=== PATIENT | female | born 2000 | race Caucasian/White ===

== ENCOUNTER 2025-08-21 11:08 | Outpatient (AMB) | payer BC, SELFPAY ==
--- NOTE | 2025-08-21 11:11 | A.OFFPC_ITS ---
Vital Signs 08/21/25 11:17 Height 5 ft 1.25 in Weight 206 lb 8 oz BMI 38.7 BP 118/86 Blood Pressure Location Rt brachial Position Sitting Respiration 15 Pulse 90 Pulse Source Pulse Oximeter Temp 98 F Temp Source Temporal Artery Scan Pulse Oximetry (%) 98 Oxygen Delivery Method Room Air Intake Visit Reasons: [employer]PER[employer]-med refills Intake Note: America presents in the office today to establish care. Allergies No Known Allergies Allergy (Verified 08/21/25 11:13) Medication List - Last Reconciled 08/20/25 by Janee Ramos, [facility] escitalopram oxalate 10 mg PO DAILY norethindrone (contraceptive) 0.35 mg PO DAILY Tobacco use date assessed: 08/21/25 Dental Screening Dental Screen Date: 08/21/25 Did you have a dental visit in the last 12 months?: No Did you have a dental problem in the last 6 months where you did not have access to dental care?: No Was dental information given to patient?: Patient declined HPI HPI Comments History of Present Illness Details 25 y/o F with obesity, vape use, VERONICA, Hi dradenitis suprative, migraine w/ aura, eczema 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 in [place], no records, pending VERONICA on escitalopram; for about 1 year. Was on other meds before (sertraline). Reviewed PHQ/VERONICA feels more stressed r/t work. Denies SI.HI BMI > 38, exercise and food are a work in progress counseling referral requested. self harm in past Does not need refill; Pharmacy [facility] Migraines with aura - IUD placed 08/06/25, on POP OCP. Uses APAP and sleeping w/ dark room; applying pressure on the headache side. Occurs 4-5 times per month. Sx last 1 day on avg Can be rebound for 3ish days +n/v Was taking propranolol in the past Stopped taking Eczema: on dorsum of hands, eye lids, external ears, hairline Was using ketoconazole - now . didnt work great using dandruff shampoo on hands using using OTC topical, unsure what it is Patch under R axilla - started 10 days ago, used otc fungal w/o relief. Itchy; mildly painful; no one else w/ rash. Hard time waking; naps during the day; hard time falling asleep; tried trazadone; didnt help; only caused side effects. Melatonin w/o effect. This has been since s. + snoring has never had sleep study Denies fhx narcolepsy. Exam Awake alert NAD PERRLA, EOMI RRR LS CTAB R axilla erythematous patch, fungal appearing; anterior and posterior trunk w/ scars from HS lesions/cystic acne; dorsum of hands is eczema Mood and affect appropriate Plan: Start Mag Oxide and Riboflavin Flu and Tdap admin today Check home sleep study; consider in lab if negative to eval for narcolepsy like complaints. Check routine labs Derm referral for HS Antifungal cream Steroid cream RTO 8-12 weeks to fu on labs, sleep study and migraines. Sooner as needed. Total time spent caring for the patient today was 45 minutes. This includes time spent before the visit reviewing the chart, time spent during the visit, and time spent after the visit on documentation, reviewing laboratory results, diagnostic imaging, medications, performing a medically necessary evaluation, counseling on diagnoses, care coordination, ordering appropriate tests, ordering appropriate medications, review of tests performed by other providers, reporting test results with the patient, communication with other healthcare providers. [facility] Medical History (Updated 08/21/25 @ 14:23 by Janee Ramos [facility]) Anxiety Eczema Migraines Family History (Updated 08/21/25 @ 11:22 by Ramila Khalil [facility]) Father Substance abuse Alcoholism Hypertension Hyperlipemia Paternal Grandfather Hypertension Hyperlipemia Maternal Grandmother Cardiovascular disease Maternal Grandfather Cardiovascular disease Sister Thyroid disorder Other Cancer Social History (Updated 08/21/25 @ 11:17 by Ramila Khalil CMA) Housing: Apartment Alcohol intake: current Patient Tobacco Use Status: Never used Tobacco e-Cigarette/Vaping Use: Currently Using Second Hand Smoke Exposure: No service: No Current occupational status: employed and student Current occupation: [employer] Current occupational exposures/hazards: No Cognitive needs: No Hearing needs: No Vision needs: No Questionnaire PHQ-9 Over the last 2 weeks, how often have you been bothered by any of the following problems? 1. Little interest or pleasure in doing things: more than half the days 2. Feeling down, depressed, or hopeless: several days 3. Trouble falling or staying asleep, or sleeping too much: nearly every day 4. Feeling tired or having little energy: nearly every day 5. Poor appetite or overeating: nearly every day 6. Feeling bad about yourself - or that you are a failure or have let yourself or your family down: not at all 7. Trouble concentrating on things, such as reading the newspaper or watching television: several days 8. Moving or speaking so slowly that other people could have noticed. Or the opposite - being so fidgety or restless that you have been moving around a lot m ore than usual: not at all 9. Thoughts that you would be better off or of hurting yourself in some way: not at all Total score: 13 Depression Screening Interpretation: Positive Depression Screening Follow-up: Existing condition and In treatment Depression Screening Done: Yes 97422 - PHQ-9 Billing: Yes Source: Developed by Drs. Mendoza Gentile, Ratna Scott, Yared Moura and colleagues, with an educational cora from [employer]. Thrive Questionnaire Date Thrive assessed: 08/21/25 I am a: Patient What is your living situation today?: I have a steady place to live Within the past 12 months, did the food you bought not last and you didn't have the money to get more?: Never true Within the past 12 months, did you worry whether your food would run out before you got money to buy more?: Never true Do you have trouble paying for medicines?: No Do you have trouble getting transportation to medical appointments?: No Do you have trouble paying your heating and electricity bill?: No Do you have trouble taking care of your child, family member or friend?: No Do you have trouble with day-to-day activities such as bathing, preparing meals, shopping, managing finances, etc.?: No Are you currently unemployed and looking for a job?: No Are you interested in more education?: No Please select the resources that you would like help with: None Currently or been in a relationship where the following occur: No concerns reported THRIVE Score: 0 AUDIT C Alcohol Use Questionnaire (AUDIT-C) 1. How often do you have a drink containing alcohol?: 2-3 times a week 2. How many drinks containing alcohol do you have on a typical day when you are drinking?: 1 or 2 3. How often do you have six or more drinks on one occasion?: Less than monthly Total Score: 4 Score Reviewed/Action Taken: Yes VERONICA-7 AMB Questionnaire VERONICA-7 Date VERONICA - 7 assessed: 08/21/25 Feeling nervous, anxious, or on edge: 3 = Nearly every day Not being able to stop or control worryin = Nearly every day Worrying too much about different things: 3 = Nearly every day Trouble relaxin = Nearly every day Being so restless that it is hard to sit still: 1 = Several days Becoming easily annoyed or irritable: 3 = Nearly every day Feeling afraid as if something awful might happen: 2 = More than half the days Total VERONICA-7 score (0-4 normal; 5-9 mild; 10-14 moderate; 15-21 severe): 18 Source: Developed by Drs. Mendoza Gentile, Ratna Scott, Yared Moura and colleagues, with an educational cora from [employer]. VERONICA-7 Assessment Billing VERONICA-7 Assessment Tool: VERONICA-7 Assessment 75816 Physical exam (Primary Care) Vital Signs: Last Vital Signs Temp 98 F 08/21/25 11:17 Pulse 90 08/21/25 11:17 Resp 15 08/21/25 11:17 BP 118/86 08/21/25 11:17 Pulse Ox 98 08/21/25 11:17 Oxygen Delivery Method Room Air 08/21/25 11:17 BMI result Body Mass Index 38.7 BMI Assessment/Plan discussion: High BMI High, discussed plan: lifestyle Tobacco/Smoking Status: Tobacco use Status Tobacco use date assessed 08/21/25 08/21/25 11:16 Patient Tobacco Use Status Never used Tobacco 08/21/25 11:17 e-Cigarette/Vaping Use Currently Using 08/21/25 11:17 PHQ-9: PHQ-9 Score PHQ-9: Total score 13 08/21/25 11:20 Depression Screening Interpretation: Positive Depression Screening Follow-up: Existing condition and In treatment Thrive Assessment: Date of Thrive Assessment Date Thrive assessed 08/21/25 08/21/25 11:13 Currently or been in a relationship where the following occur: No concerns reported Coding Level of Care Code New Pt Level 4 (94556) Complex EM visit Add On G2211 Diagnoses Encounter to establish care with new provider Z76.89 Uses oral contraception Z30.41 Obesity (BMI 30-39.9) E66.9 Vaping nicotine dependence, tobacco product F17.290 Need for Tdap vaccination Z23 Influenza vaccination administered at current visit Z23 Flexural eczema L20.82 Eczema type: flexural Hidradenitis suppurativa L73.2 Hypersomnia G47.10 Laboratory exam ordered as part of routine general medical examination Z00.00 IUD (intrauterine device) in place Z97.5 Migraine with aura and without status migrainosus, not intractable G43.109 Status migrainosus presence: without status migrainosus Intractability: not intractable VERONICA (generalized anxiety disorder) F41.1 Additional Codes VERONICA-7 Assessment Billing - VERONICA-7 Assessment Tool: VERONICA-7 Assessment 81864 ([id number]) PHQ-9 - 06093 - PHQ-9 Billing: Yes ([id number]) Assessment & Plan Assessment & Plan (1) Encounter to establish care with new provider: Code(s): Z76.89 - Persons encountering health services in other specified circumstances (2) Uses oral contraception: Code(s): Z30.41 - Encounter for surveillance of contraceptive pills Category: Social Hx (3) Obesity (BMI 30-39.9): Code(s): E66.9 - Obesity, unspecified Category: Medical (4) Vaping nicotine dependence, tobacco product: Code(s): F17.290 - Nicotine dependence, other tobacco product, uncomplicated Category: Social Hx (5) Need for Tdap vaccination: Onset Date: ~08/21/25 Code(s): Z23 - Encounter for immunization Category: Medical (6) Influenza vaccination administered at current visit: Onset Date: ~08/21/25 Code(s): Z23 - Encounter for immunization Category: Medical (7) Eczema: Code(s): L30.9 - Dermatitis, unspecified Category: Medical Qualifiers: Eczema type: flexural Qualified Code(s): L20.82 - Flexural eczema (8) Hidradenitis suppurativa: Code(s): L73.2 - Hidradenitis suppurativa Category: Medical (9) Hypersomnia: Code(s): G47.10 - Hypersomnia, unspecified Category: Medical (10) Laboratory exam ordered as part of routine general medical examination: Code(s): Z00.00 - Encounter for general adult medical examination without abnormal findings Category: Medical (11) IUD (intrauterine device) in place: Onset Date: ~07/2025 Code(s): Z97.5 - Presence of (intrauterine) contraceptive device Category: Medical (12) Migraine with aura: Code(s): G43.109 - Migraine with aura, not intractable, without status migrainosus Category: Medical Qualifiers: Status migrainosus presence: without status migrainosus Intractability: not intractable Qualified Code(s): G43.109 - Migraine with aura, not intractable, without status migrainosus (13) VERONICA (generalized anxiety disorder): Code(s): F41.1 - Generalized anxiety disorder Category: Medical Plan . Orders: Orders RT home sleep study Today G47.10 - Hypersomnia, unspecified, R06.83 - Snoring Comprehensive Met. Panel Today Z00.00 - Encounter for general adult medical examination without abnormal findings Hemoglobin A1c Today Z00.00 - Encounter for general adult medical examination without abnormal findings Lipid Panel Today Z00.00 - Encounter for general adult medical examination without abnormal findings Microalbumin, Random (w Creat) Today Z00.00 - Encounter for general adult medical examination without abnormal findings TSH reflex Free T4 Today Z00.00 - Encounter for general adult medical examination without abnormal findings Vitamin B12 and Folate Today Z00.00 - Encounter for general adult medical examination without abnormal findings Vitamin D 25-OH Total Today Z00.00 - Encounter for general adult medical examination without abnormal findings Complete Blood Count no Diff Today Z00.00 - Encounter for general adult medical examination without abnormal findings IRON PROFILE Today Z00.00 - Encounter for general adult medical examination without abnormal findings Referrals Dermatology Referral L30.9 - Dermatitis, unspecified, L73.2 - Hidradenitis suppurativa Nurse Navigator Referral F41.1 - Generalized anxiety disorder Medications: New escitalopram oxalate 10 mg PO DAILY 90 tabs 2RF riboflavin (vitamin B2) 400 mg PO BEDTIME 90 tabs 2RF nystatin apply to affected area 1 appl topical TID 30 grams 0RF 30 days triamcinolone acetonide 0.1% 1 appl topical BID 15 grams 2RF magnesium oxide 400 mg PO BEDTIME 90 caps 2RF Patient Instructions: Walk-In Care (Urgent Care): We Make it Easy Walk-in for urgent medical issues such as: ? Seasonal Allergies ? Insect Bites ? Cough ? Diarrhea ? Acute Asthma Attacks ? Back, Knee or Joint Pain ? Ear Infection ? Fever without a Rash ? Headaches ? Nausea ? [place] Eye, Rash or Skin Irritation ? Sore Throat ? Sports Physicals ? Vomiting Most insurances are accepted. Patients do not need to be part of the [facility] to seek care at the walk-in clinic. Locations [facility] , [place] [address] ? [phone] [facility] Walk-In Care in [place] provides services to ages 18 and over. Open Wednesday-Wednesday: 7 a.m. to 5 p.m. and Wednesday: 9 a.m. to 3 p.m.* *Hours may vary due to staffing availability. To confirm Walk-In Care hours in [place], please call [phone]. [address] [place] [address] ? [phone] [facility] Walk-In Care in [place] provides services to ages 12 and over. Open Wednesday-Wednesday: 8 a.m. to 5 p.m. Hours may vary due to staffing availability. To confirm Walk-In Care hours in [place], please call [phone]. LABORATORY SERVICES: [facility] ? Primary Location [address] [place] [address] Wednesday through Wednesday 6:00 AM ? 5:00 PM Wednesday 7:00 AM ? 11:00 AM* [phone] The [facility] is centrally located near the front entrance of the [facility] for easy outpatient access. Convenient parking is provided for outpatients. *Hours may vary due to staffing availability. To confirm Laboratory hours for any location, please call [phone]. Offsite Location For your convenience, we offer offsite laboratory draw stations at the following locations: [address] [place] [address] ? [facility] [address], [address], [place] Wednesday through Wednesday 7:30 AM ? 1:00 PM* [phone] *Hours may vary due to staffing availability. To confirm Laboratory hours for any location, please call [phone]. [place] ? [address] Wednesday through Wednesday 6:00 AM ? 3:30 PM* Wednesday 6:30 AM ? 3 PM* [phone] *Hours may vary due to staffing availability. To confirm Laboratory hours for any location, please call [phone]. [address] [facility] Wednesday through Wednesday 7:30 AM ? 4:00 PM* [phone] *Hours may vary due to staffing availability. To confirm Laboratory hours for any location, please call [phone] [place] [address] Wednesday through 9:00 AM ? 4:00 PM* *Hours may vary due to staffing availability. To confirm Laboratory hours for any location, please call [phone]. Appointments are not necessary. Walk-ins are welcome. Like all the departments throughout the [facility], our Lab undergoes frequent reviews to ensure the quality and accuracy of test results, and our staff takes special pride in its status as a nationally accredited facility. Patient Portal: [facility] ONE PATIENT. ONE RECORD. BETTER CARE. [facility] has a fully integrated, cutting- edge mobile electronic health information system that has revolutionized the way we care for our patients and manage our organization. This system improves communication and coordination enabling us to provide safe, higher-quality care, and an overall positive experience for staff and patients. Our first priority, as always, is to deliver the highest quality care possible. The system is running in the background supporting that priority. This portal is for all [facility] services and practices. If you are experiencing any technical difficulties with enrolling or logging into the Patient Portal please complete the [facility] Patient Portal Technical Support Form. [facility] now offers a new secure on-line interactive tool for patients to review their health information ? ?Patient Portal. This interactive web portal will enable patients and their families to take an active role in their care by providing easy, secure access to their health information via the internet. The Patient Portal provides patients with instant access to their health information, including laboratory results, medications, allergies, demographic information, visit history, and more. In addition to managing their own care, parents and health care proxies with authorized consent will appreciate the ability to access the records of those individuals for whom they provide care. Please note: if you wish to gain access (Proxy) to another patient?s portal, you will be required to come to the Medical Records Department in person at [facility]. Both the patient giving proxy access and the proxy will need to provide photo identification and complete the appropriate authorization. The Patient Portal also allows track their appointments online. The [facility] Patient Portal also saves patients time by allowing them to submit updates to their demographic and contact information prior to their visits. Portal email notifications will also alert patients to any new activity on their portal, such as test results and new appointments. In order to initially enroll in the [facility] Patient Portal, you will need to enter some required information including the following: * your [facility] Medical Record number * your personal home email address * name * date of Please note: In order to enroll in the [facility] Patient Portal, we need to have your email address on file in your electronic medical record. ?The email address needs to be specific for one person (yourself) in order for your Portal enrollment to be successful. ?You can update your email address in person with our Registration staff when you are registering for a hospital visit. ?Otherwise, you will need to come to the Health Information Management (Medical Records) Department at [facility]. ?We are open from Wednesday ? Wednesday from 7:30 a.m. ? 4:30 p.m. ?You will be required to present a photo id. Once you have successfully enrolled in the Patient Portal, you will receive a one-time user id and password for the Portal, sent to your email address. ?This will allow you to log into the Patient Portal within 99 hrs and reset your own logon id and password, and define personal security questions. ?Once your permanent login and password have been set, you can log into the [facility] Patient Portal at any time via the blue button above or from the Portal Logon button on any page of the [facility] website. [facility] encourage all of our patients to enroll in Patient Portal as it presents a valuable opportunity for patients and their families to actively participate in their care and stay healthy Welcome to [facility]. ?We look forward to working with you.
[2025-08-21 11:17] VITALS: BP 118/86; PULSE 90; RESP 15; TEMP 36.6; O2SAT 98; BMI 38.7
== END 2025-08-21 12:01 | disposition home or self-care (01) ==
LOC: HO.HMCFM 11:09
PROVIDERS: PCP Nurse Practitioner Family; Visit Provider Nurse Practitioner Family
DX: G43.109 Migraine with aura, not intractable, without status migrainosus (principal); F17.290 Nicotine dependence, other tobacco product, uncomplicated; E66.9 Obesity, unspecified; Z68.38 Body mass index [BMI] 38.0-38.9, adult; L20.82 Flexural eczema; L73.2 Hidradenitis suppurativa; Z30.41 Encounter for surveillance of contraceptive pills; Z23 Encounter for immunization; G47.10 Hypersomnia, unspecified; Z97.5 Presence of (intrauterine) contraceptive device; F41.1 Generalized anxiety disorder

== ENCOUNTER → 2025-08-21 11:08 | Outpatient (BNVA) | payer BC, SELFPAY | PROVIDERS: PCP Nurse Practitioner Family; Visit Provider Nurse Practitioner Family | DX: L20.82 Flexural eczema (principal); E66.9 Obesity, unspecified; F17.290 Nicotine dependence, other tobacco product, uncomplicated; L73.2 Hidradenitis suppurativa; Z76.89 Persons encountering health services in other specified circumstances; Z68.38 Body mass index [BMI] 38.0-38.9, adult | CPT/HCPCS: 96127 ==

== ENCOUNTER → 2025-11-27 14:45 | Outpatient (REF) | payer BC, SELFPAY ==
--- OUTSIDE RECORDS SUMMARY | 2024-10-10 16:40 | XMS_ITS | Encounter Summary ---
Author Organization [facility] Address [address] [place] [phone] Phone Care Team Providers Care Tape Cutter Name Role Phone Jean Paul Pompa MD Primary Care Provi casper Encounter Details Date Type Department Care Team (Late st Contact Info) Description 10/10/2024 4:40 PM EST Hospital Encounter [facility] [address] [place] [id number] Ceci Black CNP [address] [place] [address] [email or web address] Social History Tobacco Use Types Packs/Day Years Used Date Smoking Tobacco: Never Assessed Education Answer Date Recorded Are you interested in more education? Not on dixie e 10/10/2024 Are you concerned about learning? Not on file 10/10/2024 No 10/10/2024 No 10/10/2024 Digital Access Answer Date Recorded No 10/10/2024 No 10/10/2024 Reliable internet access at home? Not on file 10/10/2024 Device with a working camera? Not on file Comments Unknown Sex and Gender Information Value Date Recorded Sex Assigned at Not on file Legal Sex Female 4:13 PM EST Gender Identity Not on file Sexual Orientation Not on file documented as of this encounter Plan of Treatment Not on file documented as of this encounter Procedures Procedure Name Priority Date/Time Associated Diagnosis Comments XR CHEST PA AND LATERAL 2 VIEWS Urgent/patient waiting 10/10/2024 4:44 PM EST Shortness of breath documented in this encounter Results * XR CHEST PA AND LATERAL 2 VIEWS (10/10/2024 4:44 PM EST) Anatomical Region Laterality Modality Chest Computed Radiogr aphy 10/10/2024 5:11 PM EST Impressions 10/10/2024 5:21 PM EST Asymmetric right basilar peribronchial cuffing and heterogeneous opacities may relate to early bronchopneumonia, versus asymmetric infectious/inflammatory airways disease/viral pneumonia. Narrative 10/10/2024 5:21 PM EST XR CHEST PA AND LATERAL 2 VIEWS Referring clinician's provided indication for this examination in [facility]: Cough; Dyspnea (Shortness of Breath); RLL crackles COMPARISON: None FINDINGS: Devices/Tubes/Lines: None. Lungs: Peribronchial cuffing, asymmetric in the right lung base. Mild heterogeneous perihilar and basilar right lower lobe opacities, which appear fairly streaky on the lateral view. Pleura: No pneumothorax or large pleural effusion. Heart/Mediastinum: Cardiac silhouette size is within normal limits. - Bones/Soft Tissues: No evident acute skeletal abnormality. Procedure Note Roel Elliott MD - 10/10/2024 XR CHEST PA AND LATERAL 2 VIEWS Referring clinician's provided indication for this examination in [facility]:Cough; Dyspnea (Shortness of Breath); RLL crackles COMPARISON: None FINDINGS: Devices/Tubes/Lines: None. Lungs: Peribronchial cuffing, asymmetric in the right lung base. Mildheterogeneous perihilar and basilar right lower lobe opacities, whichappear fairly streaky on the lateral view. Pleura: No pneumothorax or large pleural effusion. Heart/Mediastinum: Cardiac silhouette size is within normal limits. - Bones/Soft Tissues: No evident acute skeletal abnormality. IMPRESSION: Asymmetric right basilar peribronchial cuffing and heterogeneous opacitiesmay relate to early bronchopneumonia, versus asymmetricinfectious/inflammatory airways disease/viral pneumonia. Ceci Black [employer] IMG XR CHEST Final Resul t documented in this encounter Visit Diagnoses Not on filedocumented in this encounter Care Teams Tape Cutter Relationship Specialty Start Date End Date Jean Paul Pompa MD [address] [place] [address] PCP - General Pediatrics 10/10/24 documented as of this encounter Additional Source Comments The information contained in this document represents components of the legal health record. It is not the complete legal health record.[facility]
--- OUTSIDE RECORDS SUMMARY | 2025-11-27 18:24 | XMS_ITS | Data Portability ---
Author Organization PRANEETH Macdonald [facility], [address] Address [address] [place] [address] Assessment No assessment recorded. Plan of Treatment Reminders Order Date Submit Date Provider Last Modified By Organization Details Last Modified Time Details Appointments None recorded. Lab rapid strep group A, throat 2023 024 [email or web address] [facility], [address] [place] [address], [id number], 11:35:16 streptococc us group A, culture, throat 2023 024 DUTTON [facility], [address] [place] [address], [place], [address], 08:09:17 Referral None recorded. Procedures None recorded. Surgeries None recorded. Imaging None recorded. Medication Orders penicillin V potassium 500 mg tablet 2023 024 [email or web address] [facility] #[id number], [address] [place], [address], 08:23:51 Patient TargetsNo targets recorded. Patient Instructions Encounter Date Encounter Id Patient Instructions Last Modified By Organization Details Last Modified Time 08/21/2024 [id number] sore throat: car e instructions [email or web address] Not available 08/21/2024 11:35:14 Reason for Referral None Reported. Results Created Date Observation Date Name Description Value Unit Range Abnormal Flag Note LastModifiedBy Organization Detail LastModifiedTime 08/21/20 24 08/23/2024 BETA STREP GP A CULTU RE beta strep gp A culture COMMEN T abnormal Beta- hemol ytic colon ies, not group A Strep tococ cus isola jose alejandro. Refer ence Range : Negat dave Penic illin and ampic illin are drugs of choic e for treat ment of beta- hemol ytic strep tococ diomedes infec tions . Susce ptibi lity testi ng of penic illin s and other beta- lacta m agent s appro elaine by the FDA for treat ment of beta- hemol ytic strep tococ diomedes infec tions need not be perfo rmed routi nawaf becau se nonsu scept ible isola lyle are extre rufino rare in any beta- hemol ytic strep tococ cus and have not been repor jose alejandro for Strep tococ cus pyoge berta (grou p A). (CLSI ) Not Available [facility] ([facility]) [address] [facility], [place], [address], 08/23/2024 08:09:17 08/21/20 24 08/21/2024 rapid strep group A, throa t Unknown Analyte negati ve Not Available [address] [place], [address], 08/21/2024 11:21:14 08/21/2008/21/2024 rapid strep group A, throa t Unknown Analyte yes Not Available [address] [place], [address], 08/21/2024 11:21:14 Result Notes None recorded. Problems Name Problem SNOMED Code Status Onset Date Resolution Date Notes Provider Name and Address Organization Details Recorded Time Anxiety 85607454 Active Diane Roxana null, PA - [facility] 11:18:41 Depressive disorder 19239417 Active Diane Roxana null, PA - [facility] 11:18:47 Acute pharyngitis 237118719 Active 2023 Traci Lee, YENIFER [address], [place], [address] [place] PA - [facility] 11:28:44 Problem Notes None recorded. Procedures Surgical History Date Name Laterality Status Provider Name and Address Organization Details Recorded Time procedure on ear completed Diane Schmidt PA - [facility] 08/21/2024 11:19:41 extraction of wisdom tooth completed Diane Roxana PA - [facility] 08/21/2024 11:19:49 Imaging Results None recorded. Procedure Notes None recorded. Medical Equipment None Reported. Allergies No known drug allergies Medications Name Sig Start Date Stop Date Status Note LastModified by Organization Details LastModified Time neomycin-po lymyxin-hyd rocort 3.5 mg/mL-10,00 0 unit/mL-1 % ear solution PLACE 2 DROPS IN BOTH EARS 4 TIMES A DAY FOR 7 DAYS 08/21 completed Not Available Not Available Not Available acetaminoph en 325 mg tablet TAKE 2 TABLETS BY MOUTH EVERY 6 HOURS NEEDED FOR PAIN active Not Available Not Available No t Available ketoconazol e 2 % shampoo APPLY TO AFFECTED AREA OF DAMP SKIN, LATHER, LEAVE ON 5 MINUTES, AND RINSE THREE DAYS A WEEK 08/21 completed Not Available Not Available Not Available trazodone 50 mg tablet TAKE 1/2 TAB BY MOUTH ONCE A DAY FOR 90 DAYS 08/21 completed Not Available Not Available Not Available triamcinolo ne acetonide 0.5 % topical cream APPLY TO AFFECTED AREA TWICE A DAY FOR 14 DAYS 08/21 completed Not Available Not Available Not Available penicillin V potassium 500 mg tablet Take 1 tablet twice a day by oral route for 10 days, for throat infection . 2023 active Not Available Not Available Not Avai lable ibuprofen 600 mg tablet TAKE 1 TABLET BY MOUTH EVERY 6 HOURS NEEDED FOR MODERATE PAIN active Not Available Not Available No t Available norethindro ne (contracept dave) 0.35 mg tablet TAKE 1 TABLET BY MOUTH EVERY DAY active Not Available Not Available No t Available escitalopra m 10 mg tablet TAKE 1 TABLET BY MOUTH EVERY DAY 08/21 completed Not Available Not Available Not Available escitalopra m 5 mg tablet TAKE 1 TAB BY MOUTH ONCE A DAY FOR 21 DAYS AND THEN INCREASE TO 10MG DAILY active Not Available Not Available No t Available Vitals Date Recorded Body height Body mass index (BMI) Body weight Body temperature Respiratory rate Oxygen saturation Pain severity - 0-10 verbal numeric rating [Score] - Reported Heart rate Systolic And Diastolic Provider Name and Address Organization Details Last Updated DateTime 4 154.94 cm 39.7 kg/m2 99102.4 g 98.7 [degF] 18 /min 97 % 2 88 /min 119/86 mm[Hg] Diane Roxana PA - [facility] 4 11:21:09 Social History Question Answer Notes LastModified by [employer] Details LastModified Time Tobacco Smoking Status Never Smoker Diane Roxana null, PA - [facility] 08/21/2024 11:19:21 Have You Recently Traveled Abroad? No Information not available 08/21/2024 Sex: Unknown Functional Status Question Answer Note LastModified by [employer] Details LastModified Time Do you use any illicit or recreational drugs? No Information not available 08/21/2024 Do you or have you ever used any other forms of tobacco or nicotine? Yes Information not available 08/21/2024 What is your level of alcohol consumption? Occasional Information not available 08/21/2024 Are you currently employed? Yes Information not available 08/21/2024 Do you or have you ever used e-cigarettes or vape? Current user of electronic cigarettes Information not available 08/21/2024 Mental Status None recorded. Family History Nothing Reported. Medical History No medical history recorded. Gynecological History Statement/Question Response Date of LMP 07/25/2024 Is there any chance of ? No LMP Approximate Obstetrics History GPAL:G 0 P 0 0 0 0 Immunizations Vaccine Type Date Status Note Provider Nam e and Address Organization Details Recorded Time Influenza, MDCK, quadrivalent, PF 12/18/2020 completed Diane Roxana null, PA - [facility] 08/21/2024 11:17:21 COVID-19, mRNA, LNP-S, PF, 30 mcg/0.3 mL dose 02/11/2021 completed Diane Roxana null, PA - [facility] 08/21/2024 11:17:21 COVID-19, mRNA, LNP-S, PF, 30 mcg/0.3 mL dose 03/04/2021 completed Diane Roxana null, PA - [facility] 08/21/2024 11:17:21 COVID-19, mRNA, LNP-S, PF, 30 mcg/0.3 mL dose 11/24/2021 completed Diane Roxana yoav, PA - [facility] 08/21/2024 11:17:21 Past Encounters Encounter ID Performer Location Encounter Start Date Encounter Closed Date Diagnosis/Indication Diagnosis SNOMED-CT Code Diagnosis ICD10 Code Diagnosis IMO Codes Diagnosis Note [id number] [address] [place] [phone] 08/08/2019 15:45:34 08/08/2019 17:53:42 [id number] [facility] [phone] 05/10/2019 10:48:23 05/10/2019 11:45:42 [id number] 2099[facility] [address] 06/24/2019 09:31:38 06/24/2019 10:21:39 [id number] Traci Lee NP [facility] [address] [place] [phone] 08/21/2024 11:11:52 08/21/2024 11:38:57 Acute pharyngitis 392529372 J02.9 Based on your Presentati on, Exam, and Lab Testing you are being diagnosed with strep Pharyngiti s. Your Rapid Strep Test was neg I am going to prescribe you and antibiotic to cover this infection. Please be sure to complete the full course of this antibiotic to prevent antibiotic resistance . It is also important to complete this antibiotic because this infection is what causes Scarlet Fever/Rheu matic Heart Disease. Antibiotic s will typically take 4-5 days to start to work with symptom improvemen t. The following are my other recommenda tions to help with symptoms and is important for this diagnosis: 1. Do not share any food or drinks - strep is passed through direct saliva exchange (NOT IN THE AIR)2. Change your toothbrush in 3-4 days so that you don't re-infect yourself after you complete the antibiotic .3. Take Ibuprofen or Tylenol if you do not have any allergies to these medication s. If you take a blood thinner you should not take NSAIDS like Ibuprofen. These medication will help with the inflammati on in your respirator y tract which should help the cough. (I would alternate between Tylenol 650 mg and your Ibuprofen 600 mg every 4 hours)4. Do not take any Cold Medication s that have a Decongesta nt in it - this will dry out your throat and make the sore throat worse.5. Drinking Hot Tea with honey can help coat and soothe your throat.6. You would be considered contagious for the next 24-48 hours, or until fever resolves. I would be seen again if you develop any of the following symptoms.1 . Fever > 101.02. Stiff neck - where you can't turn your neck3. Trouble swallowing your saliva - drooling4. Swelling of a lymph node in your throat that is painful to touch5. Difficulty breathing6 . Severe Headache Thank you for using [facility] today, please feel free to contact our office if you have any questions or concerns. Health Concerns Section Related Observation LastModified by Organization Detai ls LastModified Time None Recorded Concern Status LastModified by Organization Details LastModified Time None Recorded Advance Directives Directive None Recorded Payers Insurance Date Sequence Insurance Name Policy Number Policy Whitaker Covered Member ID Whitaker Member ID Guarantor Name 11/10/2024 1 [facility] [place] [id number] Gabi Varghese [id number] Notes Date Note Type Note Provider Name and Address Organization Details Recorded Time 08/21/2024 text/html Sore throatRepor jose alejandro by PatientSore ThroatFor source of patient information, patient reportsinformation obtained from patientandpatient arrived at urgent care ambulatory. For associated symptoms, patient reportsno cough,no sputum production,no shortness of breath,no wheezing,no sinus pain,no vomiting,no nausea, andno hoarseness. For context, patient reportsno sick contacts,no foreign travel, andnon-smoker. sore throat x2 days. pain level 2/10 Traci Lee NP [address] [place], [address], [place] - [facility] 09/05/2024 08:26:30 OBGyn Episode No OBEpisode recorded.
--- OUTSIDE RECORDS SUMMARY | 2025-11-27 18:24 | XMS_ITS | Clinical Summary ---
Author Organization [facility] Address [address] [place] [phone] Phone Care Team Providers Care Photoengraving Helper Name Role Phone Jean Paul Pompa MD Primary Care Provi casper Allergies No known active allergies Medications albuterol 90 mcg/actuation inhaler INHALE 2 PUFFS EVERY 4 HOURS NEEDED FOR WHEEZING/SHORTN ESS OF BREATH 10/02/20 24 Active escitalopram oxalate (LEXAPRO) 10 MG tablet Take 1 tablet by mouth every morning. 07/25/20 24 Active norethindrone (MICRONOR) 0.35 mg tablet Take 1 tablet by mouth every morning. 08/16/20 24 Active ondansetron (ZOFRAN-ODT) 4 MG disintegrating tablet TAKE 1 TABLET BY MOUTH EVERY 8 HOURS NEEDED FOR NAUSEA/VOMITING 10/02/20 24 Active methylPREDNISolone (MEDROL DOSEPACK) 4 mg tablet follow package directions 21 tablet 10/10/20 24 Active Additional Information Patient not taking.Reported on 12/17/2024 Active Problems No known active problems Immunizations No known immunizations Social History Tobacco Use Types Packs/Day Years [...] on file Sexual Orientation Not on file Last Filed Vital Signs Vital Sign Reading Time Taken Comments Blood Pressure 115/80 12/17/2024 3:27 PM EST Pulse 84 12/17/2024 3:27 PM EST Temperature 36.9 C (98.4 F) 12/17/2024 3:27 PM EST Respiratory Rate 20 12/17/2024 3:27 PM EST Oxygen Saturation 96% 12/17/2024 3:27 PM EST Inhaled Oxygen Concentration - - Weight 97.5 kg (215 lb) 12/17/2024 3:27 PM EST Height 154.9 cm (5' 1 ) 12/17/2024 3:27 PM EST Body Mass Index 40.62 12/17/2024 3:27 PM EST Plan of Treatment Health Maintenance Due Date Last Done Comments Adult Td,Tdap Booster 2000 DEPRESSION SCREENING 2012 SMOKING Hx and SMOKELESS TOBACCO SCREENING 2013 HPV VACCINES (1 - 3-dose series) 2015 HEPATITIS C SCREENING 2018 HIV ONE-TIME SCREENING (18-6 5 YEARS) 2018 PAP SMEAR 2021 INFLUENZA VACCINE (#1) 2025 12/18/2020 COVID-19 VACCINE (2024-2 6 season) 2025 11/24/2021, 03/04/2021, 02/11/2021 HEPATITIS A VACCINES Aged Out No long er eligible based on patient's age to complete this topic HIB VACCINES Aged Out No longer eligi ble based on patient's age to complete this topic MENINGOCOCCAL VACCINES (ACWY) Aged Out No longer eligible based on patient's age to complete this topic MENINGOCOCCAL VACCINES (B) Aged Out N o longer eligible based on patient's age to complete this topic PNEUMOCOCCAL VACCINES (0-49 years) Aged Out No longer eligible b ased on patient's age to complete this topic Medical Devices Not on file Insurance [facility] PPO EPO [facility] PPO EPO [employer] [facility] PPO EPO [employer] [place] [place] [employer] [place] [place] [employer] [place] [place] Care Teams Photoengraving Helper Relationship Specialty Start Date End Date Jean Paul Pompa MD [address] [place] [address] PCP - General Pediatrics 10/10/24 Additional Source Comments The information contained in this document represents components of the legal health record. It is not the complete legal health record.[facility]
== END ==
LOC: HO.SL 14:45
PROVIDERS: PCP Nurse Practitioner Family; Visit Provider Nurse Practitioner Family
DX: R06.83 Snoring (principal); G47.10 Hypersomnia, unspecified
CPT/HCPCS: 95806

== ENCOUNTER → 2025-11-28 15:07 | Outpatient (BNV) | payer BC, SELFPAY | PROVIDERS: PCP Nurse Practitioner Family; Visit Provider Psychiatry & Neurology Neurology | DX: G47.33 Obstructive sleep apnea (adult) (pediatric) (principal) | CPT/HCPCS: 95806 ==